=== PATIENT | female | born 1935 | race Caucasian/White ===

== ENCOUNTER 2016-07-30 16:00 | Outpatient (CLI) | payer MEDICARE, BC | END 2016-07-30 16:01 | disposition home or self-care (01) | LOC: LAB.R 16:00 | PROVIDERS: ATTEND Internal Medicine | DX: N30.00 Acute cystitis without hematuria (principal) | CPT/HCPCS: 87077; 87086 ==

== ENCOUNTER 2016-08-06 10:40 | Outpatient (CLI) | payer MEDICARE, BC | END 2016-08-06 10:41 | disposition home or self-care (01) | LOC: LAB.R 10:40 | PROVIDERS: ATTEND Internal Medicine | DX: N30.00 Acute cystitis without hematuria (principal) | CPT/HCPCS: 87077; 87086 ==

== ENCOUNTER 2016-08-22 10:50 | Outpatient (CLI) | payer MEDICARE, BC | END 2016-08-22 10:51 | disposition home or self-care (01) | LOC: LAB.R 10:50 | PROVIDERS: ATTEND Internal Medicine | DX: R31.9 Hematuria, unspecified (principal) | CPT/HCPCS: 87086 ==

== ENCOUNTER 2016-09-06 11:18 | Outpatient (CLI) | payer MEDICARE, BC | END 2016-09-06 11:19 | disposition home or self-care (01) | LOC: LAB.R 11:18 | PROVIDERS: ATTEND Internal Medicine | DX: E03.9 Hypothyroidism, unspecified (principal); Z79.899 Other long term (current) drug therapy | CPT/HCPCS: 84443 ==

== ENCOUNTER 2016-10-17 15:26 | Outpatient (CLI) | payer MEDICARE, BC | END 2016-10-17 15:27 | disposition home or self-care (01) | LOC: LAB.R 15:26 | PROVIDERS: ATTEND Internal Medicine | DX: N30.00 Acute cystitis without hematuria (principal) | CPT/HCPCS: 87077; 87086 ==

== ENCOUNTER 2023-07-24 08:00 | Outpatient (CLI) | payer MEDICARE, BC | END 2023-07-24 23:59 | disposition home or self-care (01) | LOC: LAB.S 08:00 | PROVIDERS: ATTEND Emergency Medicine | DX: N30.90 Cystitis, unspecified without hematuria (principal) | CPT/HCPCS: 87086; 87181 ==

== ENCOUNTER 2023-09-17 13:51 | Outpatient (CLI) | payer MEDICARE, BC ==
--- NOTE | 2023-09-17 18:53 | DEXA Report ---
PROCEDURE: Dexa Spine and/or Hip INDICATIONS: POST MENOPAUSAL TECHNIQUE: Dual energy x-ray absorptiometry (DXA) was performed on a Swopboard System. Regions measur ed are the AP Spine, femoral neck, and if needed forearm. COMPARISON: None FINDINGS: Lumbar Spine: Bone Mineral Density: 1.025 g/cm/cm,T score: -1.3. Left Femoral Neck: Bone Mineral Density: 0.657 g/cm/cm, T score: -2.7. Left Hip: Bone Mineral Density: 0.729 g/cm/cm,T score: -2.2. FRAX risk factors: None given. (T score greater or equal to -1.0: NORMAL) (T score from -1.1 to -2.4: OSTEOPENIA) (T score less than or equal to -2.5 to: OSTEOPOROSIS) Impression: By WHO criteria, this patient has osteoporosis. Patients with diagnosis of osteoporosis or osteopenia should have regular bone mineral density assess ment. For those eligible for Medicare, routine testing is allowed once every 2 years. Testing frequ ency can be increased for patients who have rapidly progressing disease or for those who are receivin g medical therapy to restore bone mass. Reviewed by: Javi Mg MD on 09/17/2023 6:52 PM PDT Approved by: Javi Mg MD on 09/17/2023 6:52 PM PDT Station ID: [id number]
== END 2023-09-17 13:52 | disposition home or self-care (01) ==
LOC: DI 13:51
PROVIDERS: ATTEND Internal Medicine
DX: M81.0 Age-related osteoporosis without current pathological fracture (principal)